=== PATIENT | female | born 1995 | race Caucasian/White ===

== ENCOUNTER 2016-11-15 16:52 | Emergency (ER) | payer MEDICAID ==
[~2016-11-15] VITALS: Ht 165.1 cm; Wt 129.0 kg
[2016-11-15] MEDS ORDERED: ONDANSETRON ODT 4 MG PO ONE (17:30)
[2016-11-15] MEDS ORDERED: IBUPROFEN 200 MG TABLET PO ONE (17:30)
[2016-11-15] MEDS ORDERED: HYDROcodone/APAP 5/325 TABLET PO ONE (17:30)
[2016-11-15] MEDS ORDERED: HYDROcodone/APAP 5/325 TABLET ONE (17:37)
[2016-11-15] MEDS ORDERED: IBUPROFEN 200 MG TABLET ONE (17:37)
[2016-11-15] MEDS ORDERED: ONDANSETRON ODT 4 MG ONE (17:37)
[2016-11-15] MEDS ORDERED: DIPH,PERTUSS(ACELL),TET VAC/PF 0.5 ML IM-VACC ONE ×2 (19:00→19:02)
[2016-11-15 19:09] VITALS: BP 123/72
[2016-11-15] MEDS ORDERED: L.E.T SOLUTION TP ONE (19:45)
[2016-11-15] MEDS ORDERED: BACITRACIN ZINC OINT 500U/GM, 0.9 GM ONE (19:51)
== END 2016-11-15 20:16 | disposition home or self-care (01) ==
LOC: EDBD → ED 18:35
DX: S83.91XA Sprain of unspecified site of right knee, initial encounter (principal); L03.111 Cellulitis of right axilla; X58.XXXA Exposure to other specified factors, initial encounter; Y93.89 Activity, other specified; Y92.89 Other specified places as the place of occurrence of the external cause; Y99.8 Other external cause status
CPT/HCPCS: 29505; 73564; 90471; 90715; 93971; 99284; Q0162

== ENCOUNTER 2016-12-10 09:50 | Inpatient (IN) | payer MEDICAID ==
[~2016-12-10] VITALS: Ht 165.1 cm; Wt 138.4 kg
[2016-12-10] MEDS ORDERED: ONDANSETRON 2MG/ML, 2ML IVPush ONE (11:00)
[2016-12-10] MEDS ORDERED: SODIUM CHLORIDE 0.9% 1,000ML IVBOLUS ONE (11:00)
[2016-12-10] MEDS ORDERED: SODIUM CHLORIDE FLUSH 10ML SYR IVF ONE (11:00)
[2016-12-10] MEDS ORDERED: ONDANSETRON 2MG/ML, 2ML ONE (11:14)
[2016-12-10] MEDS ORDERED: HYDROmorphone 2 MG/ML, 1ML ONE ×2 (11:14→13:13)
[2016-12-10] MEDS: HYDROmorphone 2 MG/ML, 1ML IVPush PRN ×3 (11:15→16:43)
[2016-12-10 11:37] LABS: BLOOD UREA NITROGEN 18 mg/dL (7-18)
[2016-12-10 11:58] LABS: ASPARTATE AMINO TRANSFERASE 10 U/L (15-37)
[2016-12-10 12:00] LABS: IS PT STATUS REG ER OR PRE ER? YES
[2016-12-10] MEDS ORDERED: OMNIPAQUE 350 MG/ML, 150 ML BOTTLE ONE (14:24)
[2016-12-10] MEDS ORDERED: GABAPENTIN 300 MG CAPSULE PO SCH (16:00)
[2016-12-10] MEDS ORDERED: HYDROmorphone 1 MG/ML, 1ML ONE (16:10)
[2016-12-10] MEDS ORDERED: HYDROmorphone 2 MG/ML, 1ML IVPush PRN (16:30)
[2016-12-10 16:41] VITALS: BP 148/93
[2016-12-10] MEDS: SODIUM CHLORIDE 0.9% 1,000 ML IV SCH (16:49)
[2016-12-10] MEDS ORDERED: METOCLOPRAMIDE 5 MG/ML, 2ML IVPush PRN (17:00)
[2016-12-10] MEDS ORDERED: ACETAMINOPHEN 325 MG TABLET PO PRN (17:00)
[2016-12-10] MEDS ORDERED: BISACODYL 10 MG SUPP PR PRN (17:00)
[2016-12-10] MEDS: LORazepam 1MG TABLET PO PRN (17:16)
[2016-12-10] MEDS: HYDROcodone/APAP 5/325 TABLET PO PRN ×2 (17:27→21:43)
[2016-12-10] MEDS: ENOXAPARIN 40 MG/0.4 ML SQ SCH (18:08)
[2016-12-10] MEDS: CEFTRIAXONE PMX 1GM/50ML 50 ML IV SCH (18:08)
[2016-12-10] MEDS: NICOTINE 21 MG/24 HR PATCH.TD24 TD SCH (18:09)
[2016-12-10 20:00] VITALS: BP 122/85
[2016-12-10] MEDS: LACTOBACILLUS CHEW TABLET PO SCH (20:46)
[2016-12-10] MEDS: AZITHROMYCIN 500 MG in SODIUM CHLORIDE 0.9% 250 ML IV SCH (20:46)
[2016-12-10] MEDS: morphine SULFATE 10 MG/ML, 1ML IVPush PRN ×3 (21:00→22:14)
[2016-12-10] MEDS: POLYETHYLENE GLYCOL 17 GM PACKET PO PRN (21:43)
[2016-12-10] MEDS: DOCUSATE 100 MG CAPSULE PO PRN (21:43)
[2016-12-10] MEDS ORDERED: TRAZ50TA18 PO (22:06)
[2016-12-10] MEDS ORDERED: PRED10TA PO (22:06)
[2016-12-10] MEDS ORDERED: GABA300C10 PO (22:06)
[2016-12-10 22:07] LABS: IS PT STATUS REG ER OR PRE ER? NO
[2016-12-11] MEDS: morphine SULFATE 10 MG/ML, 1ML IVPush PRN ×6 (01:17→21:38)
[2016-12-11 02:00] VITALS: BP 109/69
[2016-12-11] MEDS: HYDROcodone/APAP 5/325 TABLET PO PRN ×5 (02:00→22:01)
[2016-12-11] MEDS: LORazepam 1MG TABLET PO PRN ×2 (02:21→22:00)
[2016-12-11] MEDS: SODIUM CHLORIDE 0.9% 1,000 ML IV SCH ×2 (03:39→16:05)
[2016-12-11 06:10] LABS: ASPARTATE AMINO TRANSFERASE 10 U/L (15-37); BLOOD UREA NITROGEN 11 mg/dL (7-18)
[2016-12-11] MEDS: ONDANSETRON 2MG/ML, 2ML IVPush PRN (06:11)
[2016-12-11 06:16] LABS: IS PT STATUS REG ER OR PRE ER? NO
[2016-12-11 07:48] VITALS: BP 113/72
[2016-12-11] MEDS: LACTOBACILLUS CHEW TABLET PO SCH ×3 (08:58→21:25)
[2016-12-11] MEDS: DOCUSATE 100 MG CAPSULE PO PRN (08:59)
[2016-12-11] MEDS: GABAPENTIN 300 MG CAPSULE PO SCH ×3 (08:59→21:25)
[2016-12-11] MEDS: SENNA/DOCUSATE TABLET PO SCH ×2 (09:00→09:01)
[2016-12-11 11:40] LABS: IS PT STATUS REG ER OR PRE ER? NO
[2016-12-11] MEDS ORDERED: NICOTINE 21 MG/24 HR PATCH.TD24 TD ONE (13:30)
[2016-12-11] MEDS: CEFTRIAXONE PMX 1GM/50ML 50 ML IV SCH (16:05)
[2016-12-11 16:52] VITALS: BP 103/70
[2016-12-11 17:01] LABS: IS PT STATUS REG ER OR PRE ER? NO
[2016-12-11 19:55] VITALS: BP 113/77
[2016-12-11] MEDS: NICOTINE 21 MG/24 HR PATCH.TD24 TD SCH (20:02)
[2016-12-11] MEDS: ENOXAPARIN 40 MG/0.4 ML SQ SCH (20:04)
[2016-12-11] MEDS: AZITHROMYCIN 500 MG in SODIUM CHLORIDE 0.9% 250 ML IV SCH (20:04)
[2016-12-11] MEDS ORDERED: TRAZODONE 100MG TABLET PO SCH (21:00)
[2016-12-11 21:24] LABS: IS PT STATUS REG ER OR PRE ER? NO
[2016-12-11] MEDS: ZOLPIDEM 5MG TABLET PO PRN (21:25)
[2016-12-11] MEDS: POLYETHYLENE GLYCOL 17 GM PACKET PO PRN (23:08)
[2016-12-12] MEDS: morphine SULFATE 10 MG/ML, 1ML IVPush PRN ×4 (01:45→13:46)
[2016-12-12 02:00] VITALS: BP 122/89
[2016-12-12] MEDS: HYDROcodone/APAP 5/325 TABLET PO PRN ×4 (02:05→16:11)
[2016-12-12 06:19] LABS: BLOOD UREA NITROGEN 11 mg/dL (7-18)
[2016-12-12 07:23] VITALS: BP 118/83
[2016-12-12] MEDS: DOCUSATE 100 MG CAPSULE PO PRN (07:36)
[2016-12-12] MEDS: SENNA/DOCUSATE TABLET PO SCH (07:36)
[2016-12-12] MEDS: LORazepam 1MG TABLET PO PRN ×2 (07:36→14:13)
[2016-12-12] MEDS: GABAPENTIN 300 MG CAPSULE PO SCH ×3 (07:36→21:19)
[2016-12-12] MEDS: LACTOBACILLUS CHEW TABLET PO SCH ×3 (07:37→20:19)
[2016-12-12] MEDS: SODIUM CHLORIDE 0.9% 1,000 ML IV SCH (07:37)
[2016-12-12] MEDS: CEFTRIAXONE PMX 1GM/50ML 50 ML IV SCH (16:11)
[2016-12-12] MEDS: HYDROmorphone 2 MG/ML, 1ML IVPush PRN ×4 (18:20→23:40)
[2016-12-12] MEDS: POLYETHYLENE GLYCOL 17 GM PACKET PO PRN (20:19)
[2016-12-12] MEDS: OXYcodone/APAP 7.5/325MG TABLET PO PRN (20:20)
[2016-12-12] MEDS: NICOTINE 21 MG/24 HR PATCH.TD24 TD SCH (20:21)
[2016-12-12] MEDS: ENOXAPARIN 40 MG/0.4 ML SQ SCH (20:21)
[2016-12-12] MEDS: AZITHROMYCIN 500 MG in SODIUM CHLORIDE 0.9% 250 ML IV SCH (20:21)
[2016-12-12 21:20] VITALS: BP 137/82
[2016-12-12 21:59] VITALS: BP 115/85
[2016-12-12 23:38] VITALS: BP 121/89
[2016-12-13] MEDS: LORazepam 1MG TABLET PO PRN ×3 (00:16→22:50)
[2016-12-13] MEDS: ZOLPIDEM 5MG TABLET PO PRN ×2 (00:16→22:50)
[2016-12-13] MEDS: KETOROLAC 30 MG/1 ML IM PRN ×2 (01:56→23:21)
[2016-12-13 02:53] VITALS: BP 126/76
[2016-12-13 05:38] LABS: BLOOD UREA NITROGEN 13 mg/dL (7-18)
[2016-12-13] MEDS: HYDROmorphone 2 MG/ML, 1ML IVPush PRN ×4 (06:22→20:11)
[2016-12-13 07:48] VITALS: BP 117/82
[2016-12-13] MEDS: GABAPENTIN 300 MG CAPSULE PO SCH ×4 (08:06→21:27)
[2016-12-13] MEDS: SENNA/DOCUSATE TABLET PO SCH ×2 (08:06→09:17)
[2016-12-13] MEDS: LACTOBACILLUS CHEW TABLET PO SCH ×4 (08:06→20:11)
[2016-12-13] MEDS: OXYcodone/APAP 7.5/325MG TABLET PO PRN ×3 (09:17→21:26)
[2016-12-13] MEDS: POLYETHYLENE GLYCOL 17 GM PACKET PO PRN (10:37)
[2016-12-13] MEDS: NICOTINE 21 MG/24 HR PATCH.TD24 TD SCH (13:30)
[2016-12-13 14:38] VITALS: BP 111/83
[2016-12-13] MEDS: CEFTRIAXONE PMX 1GM/50ML 50 ML IV SCH (16:56)
[2016-12-13] MEDS: OxyconTIN ER 10 MG TAB.ER PO SCH (16:56)
[2016-12-13] MEDS: AZITHROMYCIN 500 MG in SODIUM CHLORIDE 0.9% 250 ML IV SCH (18:25)
[2016-12-13] MEDS: ENOXAPARIN 40 MG/0.4 ML SQ SCH (20:11)
[2016-12-13 20:12] VITALS: BP 129/82
[2016-12-14 01:04] VITALS: BP 138/96
[2016-12-14] MEDS: HYDROmorphone 2 MG/ML, 1ML IVPush PRN ×3 (01:07→09:28)
[2016-12-14] MEDS: OxyconTIN ER 10 MG TAB.ER PO SCH ×2 (04:36→19:33)
[2016-12-14 04:47] VITALS: BP 137/84
[2016-12-14 05:33] LABS: ASPARTATE AMINO TRANSFERASE 4 U/L (15-37); BLOOD UREA NITROGEN 13 mg/dL (7-18)
[2016-12-14] MEDS: OXYcodone/APAP 7.5/325MG TABLET PO PRN ×4 (06:20→21:21)
[2016-12-14 07:49] VITALS: BP 137/83
[2016-12-14] MEDS: LACTOBACILLUS CHEW TABLET PO SCH ×3 (08:36→21:20)
[2016-12-14] MEDS: SENNA/DOCUSATE TABLET PO SCH (08:37)
[2016-12-14] MEDS: GABAPENTIN 300 MG CAPSULE PO SCH ×3 (08:37→21:20)
[2016-12-14] MEDS ORDERED: HYDROmorphone 1 MG/ML, 1ML ONE (09:25)
[2016-12-14 13:58] VITALS: BP 134/83
[2016-12-14] MEDS: NICOTINE 21 MG/24 HR PATCH.TD24 TD SCH (15:57)
[2016-12-14] MEDS: BUPROPION SR 100 MG TABLET PO SCH (16:56)
[2016-12-14] MEDS: CEFTRIAXONE PMX 1GM/50ML 50 ML IV SCH (16:57)
[2016-12-14] MEDS: AZITHROMYCIN 500 MG in SODIUM CHLORIDE 0.9% 250 ML IV SCH (18:36)
[2016-12-14 19:14] VITALS: BP 130/69
[2016-12-14] MEDS ORDERED: GADOBUTROL 10 MMOL/10 ML PFS ONE (20:38)
[2016-12-14 21:10] VITALS: BP 131/85
[2016-12-14] MEDS: ONDANSETRON 2MG/ML, 2ML IVPush PRN (21:20)
[2016-12-14] MEDS: ENOXAPARIN 40 MG/0.4 ML SQ SCH (21:20)
[2016-12-14] MEDS: ZOLPIDEM 5MG TABLET PO PRN (23:04)
[2016-12-15 02:00] VITALS: BP 124/86
[2016-12-15] MEDS: OXYcodone/APAP 7.5/325MG TABLET PO PRN ×5 (05:34→23:18)
[2016-12-15 06:09] LABS: BLOOD UREA NITROGEN 13 mg/dL (7-18)
[2016-12-15] MEDS: SENNA/DOCUSATE TABLET PO SCH (08:06)
[2016-12-15] MEDS: OxyconTIN ER 10 MG TAB.ER PO SCH ×2 (08:06→20:00)
[2016-12-15] MEDS: LACTOBACILLUS CHEW TABLET PO SCH ×3 (08:07→20:01)
[2016-12-15] MEDS: GABAPENTIN 300 MG CAPSULE PO SCH ×3 (08:07→20:01)
[2016-12-15] MEDS: BUPROPION SR 100 MG TABLET PO SCH ×2 (08:10→18:29)
[2016-12-15 09:19] LABS: RHEUMATOID FACTOR SCREEN NEGATIVE (NEGATIVE)
[2016-12-15] MEDS: NICOTINE 21 MG/24 HR PATCH.TD24 TD SCH (12:43)
[2016-12-15 13:20] VITALS: BP 119/82
[2016-12-15 13:42] LABS: ANA SCREEN POSITIVE (Negative)
[2016-12-15] MEDS ORDERED: GADOBUTROL 10 MMOL/10 ML PFS ONE (18:02)
[2016-12-15] MEDS: CEFTRIAXONE PMX 1GM/50ML 50 ML IV SCH (18:29)
[2016-12-15] MEDS: KETOROLAC 30 MG/1 ML IVPush PRN (18:38)
[2016-12-15 20:00] VITALS: BP 112/68
[2016-12-15] MEDS: AZITHROMYCIN 500 MG in SODIUM CHLORIDE 0.9% 250 ML IV SCH (20:00)
[2016-12-15] MEDS: ENOXAPARIN 40 MG/0.4 ML SQ SCH (20:03)
[2016-12-15] MEDS: ZOLPIDEM 5MG TABLET PO PRN (21:21)
[2016-12-16 01:10] VITALS: BP 121/76
[2016-12-16] MEDS: KETOROLAC 30 MG/1 ML IVPush PRN (01:52)
[2016-12-16] MEDS: ONDANSETRON 2MG/ML, 2ML IVPush PRN (03:17)
[2016-12-16] MEDS: OXYcodone/APAP 7.5/325MG TABLET PO PRN ×5 (03:28→20:12)
[2016-12-16 06:49] LABS: BLOOD UREA NITROGEN 14 mg/dL (7-18)
[2016-12-16 07:07] VITALS: BP 116/72
[2016-12-16] MEDS: SENNA/DOCUSATE TABLET PO SCH (07:39)
[2016-12-16] MEDS: OxyconTIN ER 10 MG TAB.ER PO SCH (07:39)
[2016-12-16] MEDS: LACTOBACILLUS CHEW TABLET PO SCH ×3 (07:39→21:50)
[2016-12-16] MEDS: GABAPENTIN 300 MG CAPSULE PO SCH ×3 (07:39→21:50)
[2016-12-16] MEDS: BUPROPION SR 100 MG TABLET PO SCH ×2 (07:40→16:03)
[2016-12-16] MEDS ORDERED: SODIUM BICARBONATE 4.2%, 5ML ONE (11:10)
[2016-12-16] MEDS ORDERED: LIDOCAINE 2%, 20ML ONE (11:10)
[2016-12-16] MEDS: NICOTINE 21 MG/24 HR PATCH.TD24 TD SCH (11:53)
[2016-12-16 14:24] VITALS: BP 136/75
[2016-12-16] MEDS: CEFTRIAXONE PMX 1GM/50ML 50 ML IV SCH (17:03)
[2016-12-16] MEDS: AZITHROMYCIN 500 MG in SODIUM CHLORIDE 0.9% 250 ML IV SCH (20:13)
[2016-12-16 20:18] VITALS: BP 125/71
[2016-12-16] MEDS: ENOXAPARIN 40 MG/0.4 ML SQ SCH (21:50)
[2016-12-16] MEDS ORDERED: MAGNESIUM HYDROXIDE 8%, 30ML UDC PO PRN (22:30)
[2016-12-16] MEDS: ZOLPIDEM 5MG TABLET PO PRN (22:41)
[2016-12-17] MEDS: AZITHROMYCIN 500 MG in SODIUM CHLORIDE 0.9% 250 ML IV SCH (00:17)
[2016-12-17] MEDS: OXYcodone/APAP 7.5/325MG TABLET PO PRN ×4 (00:17→13:24)
[2016-12-17] MEDS: KETOROLAC 30 MG/1 ML IVPush PRN ×2 (00:41→08:17)
[2016-12-17] MEDS: ONDANSETRON 2MG/ML, 2ML IVPush PRN (00:41)
[2016-12-17 01:38] VITALS: BP 119/74
[2016-12-17 07:46] VITALS: BP 122/86
[2016-12-17] MEDS: SENNA/DOCUSATE TABLET PO SCH (08:17)
[2016-12-17] MEDS: LACTOBACILLUS CHEW TABLET PO SCH (08:17)
[2016-12-17] MEDS: GABAPENTIN 300 MG CAPSULE PO SCH (08:17)
[2016-12-17] MEDS: POLYETHYLENE GLYCOL 17 GM PACKET PO PRN (09:00)
[2016-12-17] MEDS ORDERED: ACID1TAB7 PO (10:27)
[2016-12-17] MEDS ORDERED: GABA300C10 PO (10:27)
[2016-12-17] MEDS: NICOTINE 21 MG/24 HR PATCH.TD24 TD SCH (12:09)
[2016-12-17] MEDS: BUPROPION SR 100 MG TABLET PO SCH (12:09)
[2016-12-17 14:59] VITALS: BP 139/91
[2016-12-17] MEDS ORDERED: ZOLP-413 PO (17:25)
[2016-12-17] MEDS ORDERED: BUPR-173 PO (17:25)
== END 2016-12-17 17:00 | disposition home or self-care (01) | DRG 557 ==
LOC: ED 10:40 → EDIP 14:59 → 4WST 16:24 → DCLOUNGE 12-17 15:42
PROVIDERS: ADMIT Internal Medicine; ATTEND Internal Medicine
PROC: 0Y9H3ZZ Drainage of Right Lower Leg, Percutaneous Approach (ICD-10-PCS; principal; 2016-12-16)
DX: M66.0 Rupture of popliteal cyst (principal); J18.9 Pneumonia, unspecified organism; Z68.42 Body mass index [BMI] 45.0-49.9, adult; R65.10 Systemic inflammatory response syndrome (SIRS) of non-infectious origin without acute organ dysfunction; F41.9 Anxiety disorder, unspecified; E66.01 Morbid (severe) obesity due to excess calories; D72.829 Elevated white blood cell count, unspecified; F17.210 Nicotine dependence, cigarettes, uncomplicated; F32.9 Major depressive disorder, single episode, unspecified; R20.2 Paresthesia of skin; S86.912A Strain of unspecified muscle(s) and tendon(s) at lower leg level, left leg, initial encounter; R10.9 Unspecified abdominal pain; F90.9 Attention-deficit hyperactivity disorder, unspecified type; Z80.1 Family history of malignant neoplasm of trachea, bronchus and lung; Z88.3 Allergy status to other anti-infective agents; Z83.2 Family history of diseases of the blood and blood-forming organs and certain disorders involving the immune mechanism
CPT/HCPCS: 10160; 36415; 71010; 71275; 72148; 74176; 75989; 80048; 80053; 81001; 81003; 83880; 84484; 84703; 85025; 85379; 85610; 85651; 85730; 86038; 86039; 86140; 86430; 87040; 87070; 87075; 87086; 87205; 93005; 93306; 93970; 96361; 96374; 96375; 96376; A9585; J0456; J0696; J1170; J1650; J1885; J2405; J3490; Q9967; J2270; J7030; J7050; J7512